=== PATIENT | male | born 1995 ===

== ENCOUNTER 2020-07-11 11:18 | Emergency (ER) | payer MEDICAID, SELFPAY ==
[2020-07-11 12:17] VITALS: BP 99/63; PULSE 61; RESP 18; TEMP 36.3; O2SAT 99; BMI 27.3
--- NOTE | 2020-07-11 12:58 | XR_ITS ---
WS: [id number] 3 views of the left second finger, 07/11/2020 Clinical Data: trauma/index Comparison: None. Findings: There is partial amputation of the distal phalanx of left second finger. There are only fragments rem aining of the base of the distal phalanx. There has been soft tissue injury adjacent to the radial si de of the middle phalanx and extensive soft tissue injury to the distal phalanx. The left second finger proximal phalanx is intact. XR/XR finger LT min 2V 55037 Impression: 1. Partial amputation of distal phalanx of left second finger with only fragmen ts remaining of the base of the left second distal phalanx. 2. Soft tissue injury to the radial side of the middle phalanx of the left seco nd finger.
--- NOTE | 2020-07-11 13:57 | W.ED.UPPEXIN ---
HPI - Extremity Injury (Upper) General: Chief Complaint: Trauma Stated Complaint: hand lac left Time Seen by Provider: 07/11/20 13:56 Source: patient Mode of arrival: ambulatory Limitations: no limitations History of Present Illness: HPI narrative: Patient is a 24-year-old male who presents to ED today for evaluation of a left index finger injury. Patient tells me approximately 4 hours ago he cut the left index finger on a table saw. Patient's tetanus is UTD. complaint: injury to: left and finger Onset (ago): hour(s) Other injuries: none Place: home Severity: severe Context: laceration (amputation ) Associated symptoms: Reports no associated symptoms Review of Systems Musc: Reports: extremity pain (L index finger) Skin/Breast: Reports: other (L index finger amputation) Neuro: Denies: numbness in extremities or sensory changes Physical Exam Const: COMMON NORMALS: no acute distress, average body habitus, patient oriented x3, healthy appearing, alert and well nourished EXAM LIMITATIONS: other limitations (mild intellectual disability) Extremity: OTHER: pt with extensive soft tissue involvement of palmar/radial L index finger involving distal and middle phalanx; complete nail avulsion; no active bleeding; pt maintains good ROM against resistance Neuro: COMMON NORMALS: patient oriented x3, moves all extremities, no focal motor deficits and no sensory deficits noted SENSORIUM/ORIENTATION: Yes alert Course Consultations: Consultation #1: Dr. Paz-agrees with plan of irrigation, wet to dry dressing, abx, and she will see in office on Tuesday and schedule surgery. Requests PCR COVID. Vital Signs: Vital signs: Vital Signs Temperature 97.3 F L 07/11/20 12:17 Pulse Rate 84 07/11/20 14:24 Respiratory Rate 16 07/11/20 14:24 Blood Pressure 125/80 07/11/20 14:24 Pulse Oximetry 96 07/11/20 14:24 MDM - Extremity Injury (Upper) MDM Narrative: Medical decision making narrative: Finger was soaked in Betadine and irrigated extensively. Wet-to-dry dressing placed. He was given instructions on how to dress at home and dressing material was provided. Patient will be placed on Keflex. He will be given pain medications. Case management is currently working on his appointment to see Dr. Paz on Tuesday. Patient's tetanus was up-to-date. He did obtain PCR testing for COVID prior to discharge. Imaging Data^: L finger XR: Radiologist's impression: [address] [place] [address] XRay Report Signed Patient: Grover SOLO #: [id number] : 1995Acct#:[id number] Age/Sex: 24 / MADM Date: 07/11/20 Loc: ERRoom/Bed: Attending Dr: Ordering Provider/Ordering MD: Jennifer Wilkins Date of Service: 07/11/20 Procedure(s): XR finger LT min 2V [id number] Accession Number(s): [id number] Report Number: [id number] WS: [id number] views of the left second finger, 07/11/2020 Clinical Data: trauma/index Comparison: None. Findings: There is partial amputation of the distal phalanx of left second finger. There are only fragments remaining of the base of the distal phalanx. There has been soft tissue injury adjacent to the radial side of the middle phalanx and extensive soft tissue injury to the distal phalanx. The left second finger proximal phalanx is intact. XR/XR finger LT min 2V 48593 Impression: 1. Partial amputation of distal phalanx of left second finger with only fragments remaining of the base of the left second distal phalanx. 2. Soft tissue injury to the radial side of the middle phalanx of the left second finger. Dictated By:Glenys Arciniega MD Signed By:Glenys Arciniega MDSigned Date/Time:07/11/20 1313 DD/ 1310 Discharge Plan Discharge Patient Disposition: Home Clinical Impression: Traumatic amputation of left index finger Condition: Stable Prescriptions: New hydrocodone-acetaminophen 5-325 mg tablet 1 tab PO Q6H PRN (Reason: pain) Qty: 14 RF: 0 Keflex 500 mg capsule 500 mg PO Q6H 7 Days Qty: 28 RF: 0 No Action ibuprofen 200 mg Tablet 600 mg PO PRN RF: 0 Discharge Orders: Discharge ED (Routine); Ordered 07/11/20 Ordered By: Jennifer Wilkins Referrals: Makenzie Paz MD [Physician] - Patient Instructions: Finger Amputation (Surgical) Activity Restrictions/Additional Instructions: You have been instructed on how to dress finger with wet-to-dry dressings. Please continue to keep finger clean and dressed until seen by orthopedics. Case management will set you up with an appointment to see Dr. Paz on Tuesday. Fill your antibiotics and pain medications immediately and begin the antibiotics as soon as possible. The pain medications you may take for severe pain. Return to the ED immediately for uncontrollable pain, redness streaking up your hand/arm, fevers, or any other concerns you may have. Coding Level of Care Code ED [employer] for Stefano Carreon
[2020-07-11 14:24] VITALS: BP 125/80; PULSE 84; RESP 16; O2SAT 96
[2020-07-11] MEDS: ceFAZolin 1,000 mg SDV 1000 MG IM (14:46)
--- NOTE | 2020-07-11 14:56 | DCPLANNER ---
railway station manager was asked to schedule a follow up appointment for patient with ortho. railway station manager called the ortho clinic, spoke with Florinda, gave clinic appointment information. A follow up appointment was scheduled for Tuesday, July 14, [address] at 2:[address] Paz. railway station manager told patient of the scheduled appointment.
[2020-07-12 17:50] LABS: Coronavirus Test Green County Not Detected
--- NOTE | 2020-07-15 07:25 | DCPLANNER ---
Patient had a follow up appointment scheduled for 07.14.20 with ortho - patient attended appointment.
== END 2020-07-11 15:26 | disposition home or self-care (01) ==
PROVIDERS: Emergency Provider Physician Assistant
DX: S68.121A Partial traumatic metacarpophalangeal amputation of left index finger, initial encounter (principal); W27.0XXA Contact with workbench tool, initial encounter
CPT/HCPCS: 12345; 73140; 87635; 96372; 96375; 99282; 99283; J0690

== ENCOUNTER → 2020-07-14 08:16 | Outpatient (BNVA) | payer MEDICAID, SELFPAY | PROVIDERS: Visit Provider Specialist | DX: S68.111A Complete traumatic metacarpophalangeal amputation of left index finger, initial encounter (principal); X58.XXXA Exposure to other specified factors, initial encounter | CPT/HCPCS: 73140 ==

== ENCOUNTER 2020-07-15 06:10 | Day surgery (SDC) | payer MEDICAID, SELFPAY ==
[2020-07-14 13:12] VITALS: BMI 27.1
[2020-07-15] VITALS (15 sets, daily range): BP systolic 94–127; BP diastolic 38–80; PULSE 65–80; RESP 14–22; TEMP 36.1–36.6; O2SAT 97–100
--- NOTE | 2020-07-15 06:44 | ANES.PREANE2 ---
Pre-Anesthetic Assessment Pre-Anesthetic Assessment: Height/Weight: Height 1.8 m Weight 88.451 kg Temp Pulse Resp BP Pulse Ox 97 F L 70 16 108/68 97 07/15/20 06:26 07/15/20 06:26 07/15/20 06:26 07/15/20 06:26 07/15/20 06:26 Preop Diagnosis: Traumatic Left index finger amputation Proposed Procedure: Operation Date: 07/15/20 09:45 Proposed Procedures p left index finger amputation revision 27649 s68.111a(Left) - Makenzie Paz MD Was Beta Beni taken within 24 hours: N/A Last intake: Intake Last Liquid Date 07/14/20 Last Liquid Time 23:00 Last Solid Date 07/14/20 Last Solid Time 23:00 Social: Social History: Tobacco and No alcohol Exam: Pre-Anes Outpt Exam: alert, oriented x 3, clear to auscultation bilaterally and regular rate & rhythm Airway: Submandibular: WNL Cervical ROM: WNL MP: 2 Additional comments: Poor dentition Pulmonary: Pulmonary: COPD Anesthetic Plan: ASA status: 2 Anesthesia: General Risk of > 500 ml blood loss (7ml/kg in children): No PFSH Anesthesia PFSH: Social History Smoking and tobacco status: never smoked Alcohol intake: never Data Anesthesia Cardiac Studies: No Data to Display
[2020-07-15] MEDS: sodium chloride 0.9% 1,000 ML 30 ML IV (06:50)
[2020-07-15] MEDS: CELEcoxib 200 mg Capsule 400 MG PO (06:51)
--- NOTE | 2020-07-15 07:00 | W.PM.OPSUD ---
Surgery/Procedure H&P Update DATE OF PROCEDURE: July 15, 2020 DATE H&P PERFORMED: 07/14/20 H&P UPDATE INFORMATION: I have reviewed H&P completed within last 30 days, I have examined patient prior to procedure, No changes to prior documentation and H&P is in [facility] EMR on date indicated PREOP DIAGNOSIS: Traumatic Left index finger amputation PLANNED PROCEDURE: Operation Date: 07/15/20 09:45 Proposed Procedures p left index finger amputation revision 49830 s68.111a(Left) - Makenzie Paz MD Related Problem List Diagnoses (1) Traumatic amputation of left index finger:
[2020-07-15] MEDS: vancomycin 1,000 MG in sodium chloride 0.9% 250 ML 250 MG IV (07:05)
[2020-07-15 07:33] LABS: Basophils # 0.1 10^3/uL (0.0-0.1); Basophils % 0.8 %; Eosinophils # 0.3 10^3/uL (0.0-0.8); Eosinophils % 3.3 %; Hematocrit 49.4 % (42.0-52.0); Hemoglobin 16.3 g/dL (11.7-16.6); Lymphocytes % 25.6 %; Mean Corpuscular Hemoglobin 29.3 pg (28.0-34.0); Mean Corpuscular Volume 88.8 fL (80-94); Mean Platelet Volume 9.2 fL (7.4-10.4); Monocytes # 0.6 10^3/uL (0.2-0.9); Monocytes % 7.8 %; Neutrophils # 4.85 10^3/uL (1.8-7.7); Neutrophils % 62.2 %; Nucleated Red Blood Cells % 0 %; Platelet Count 272 10^3/cmm (130-400); Red Blood Count 5.56 10^6/uL (4.1-5.3); Red Cell Distribution Width 12.7 % (12.1-15.1); White Blood Count 7.8 10^3/uL (4.0-10.0)
[2020-07-15] MEDS: ceFAZolin 1,000 mg SDV 1000 MG (08:04)
--- NOTE | 2020-07-15 08:45 | P.PCN_ITS ---
PACU note PACU note: VSS, Good respiratory effort, report to OFFAL SEPARATOR Post-Anesthesia Exam: awake
--- NOTE | 2020-07-15 08:45 | PM.PACU ---
PACU note PACU note: VSS, Good respiratory effort, report to STAFF SONOGRAPHER Post-Anesthesia Exam: awake
--- NOTE | 2020-07-15 08:57 | P.OP_ITS ---
Operative Report Date of procedure: July 15, 2020 Pre-op Diagnosis: Traumatic Left index finger amputation Post-op diagnosis: same Procedure Done: Revision left index finger amputation Specimens removed/disposition: None Pathology: none sent Surgeon: Makenzie Paz Supervisor [employer] Room: None Anesthesia: General (Per LMA, ASA 2) Estimated blood loss (mL): 10 Tourniquet time (min): 33 Tourniquet time: At 250 mmHg IV fluids (mL): 500 Urine output (mL): 0 Urine output: No Lewis Complications: None Findings: Complex left traumatic index finger amputation with fracturing of the remaining distal phalanx which was minimal, and involvement of the distal aspect of the middle phalanx. Condition: stable Disposition: PACU (Then home with family) Brief History: This 24-year-old gentleman was in his usual state of health when he had a table saw injury to his left index finger. The patient was seen in the emergency department. The wound was dressed. He came to my office yesterday, and we scheduled surgery for today. He was seen with his aunt. The surgery was discussed. Questions were answered. Consents will be signed. Procedure: The patient was brought to the operating theater. The patient had a general anesthetic, ASA 2, per LMA. The tourniquet was elevated partially through the case without exsanguination to 250 mmHg for a total tourniquet time of 33 minutes. The patient was also given vancomycin 1 g preoperatively. The arm was t hen prepped and draped with DuraPrep in usual fashion with the arm draped free. A surgical pause was performed. At the time, the surgical pause, we confirmed the site and side of surgery. We also confirmed the patient's identity, appropriate and timely administration of preoperative antibiotics and preoperative surgical markings. The skin was sharply debrided of all necrotic tissue. The soft tissues and fatty tissues were also debrided. Approximately half of the middle phalanx was excised using combination of bone biter and ronguer. Tendons were evaluated both on the flexor and extensor surfaces. These were tagged. Debridement of the middle phalanx was accomplished until we could close the skin not under tension. Following this, the wound was copiously irrigated. Tourniquet was rel eased and hemostasis was obtained. Flexor and extensor tendons were brought together over the distal end of the middle phalanx. We then reapproximated the skin to allow closure over the bone and tendons. The wound was irrigated again. It was then closed with 3-0 nylon in an interrupted mattress fashion. Sterile dressing was then placed consisting of Xeroform gauze, 4 x 4's, and a Coban. The tourniquet was released after 33 minutes. There were no complications. There were no specimens. The procedure was well tolerated. Plan is the patient will be discharged home. Associated Problem List Diagnoses (1) Traumatic amputation of left index finger:
[2020-07-15] MEDS: fentaNYL 50 mcg/mL INJ 2mL IVP ×2 (09:03→09:08)
--- NOTE | 2020-07-15 09:40 | ANE.PACU2 ---
Inpatient post-anesthesia follow up: Airway intact: Yes Vital signs: Temperature 97.6 F Pulse Rate 80 Respiratory Rate 18 Blood Pressure 126/75 Pulse Oximetry 100 Oxygen Delivery Me thod Room Air Oxygen Flow Rate Fraction of Inspir ed Oxygen Hydration adequate: Yes Nausea and vomiting: No Pain level: 3 Mental status: Baseline
[2020-07-15] MEDS: morphine 4 mg/mL SDV 1 mL IVP (09:44)
[2020-07-15] MEDS: HYDROcodone-acetaminophen 5-325 mg Tablet 1 TAB PO (10:01)
== END 2020-07-15 10:37 | disposition home or self-care (01) ==
PROVIDERS: Visit Provider Specialist
PROC: (CPT 26951; principal; 2020-07-15 09:45)
DX: S68.111A Complete traumatic metacarpophalangeal amputation of left index finger, initial encounter (principal); X58.XXXA Exposure to other specified factors, initial encounter; J44.9 Chronic obstructive pulmonary disease, unspecified
CPT/HCPCS: 26951; 12345; 36415; 85025; 96365; J0131; J0690; J2270; J2704; J3010; J3370; J7030; J7050

== ENCOUNTER → 2020-07-31 13:59 | Outpatient (BNVA) | payer MEDICAID, SELFPAY | PROVIDERS: Visit Provider Specialist | DX: Z47.89 Encounter for other orthopedic aftercare (principal); S68.111D Complete traumatic metacarpophalangeal amputation of left index finger, subsequent encounter; W27.0XXD Contact with workbench tool, subsequent encounter | CPT/HCPCS: 73140 ==